=== PATIENT | female | born 1985 | race Hispanic/Latino ===

== ENCOUNTER 2018-08-16 15:25 | Inpatient (IN) | payer MEDICAID ==
[2018-08-16] MEDS ORDERED: BRETHINE IVP PRN (16:26)
[2018-08-16] MEDS ORDERED: BRETHINE SUB-Q PRN (16:26)
[2018-08-16] MEDS ORDERED: MINERAL OIL PO PRN (16:26)
[2018-08-16] MEDS ORDERED: STADOL IV PRN (16:26)
[2018-08-16] MEDS ORDERED: PITOCin/NS 20 UNIT/1000ML DRIP 20 UNITS/1,000 ML BAG IV SCH (17:00)
[2018-08-16] MEDS ORDERED: PITOCin/NS 30 UNIT/500ML 30 UNITS/500 ML BAG IV SCH (17:00)
--- NOTE | 2018-08-16 17:02 | History and Physical Report ---
History of Present Illness Date of examination: 08/16/18 Date of admission: 08/16/18 15:25 Chief complaint: sent from office for admission, advanced dilatation History of present illness: Menstrual History Regularity: regular Menses every: 28 days Duration: 7 LMP: 10/2017 LMP reliability: month known LMP character: normal test type: urine test Date: 05/13/2018 BC at conception: none Planned ? 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 of genital herpes: no Partner hx. of genital herpes: no Rash, Viral, or Febrile illness since last LMP? no Varicella/Chicken Pox Status: Previous Disease Genetic History Congenital Heart Defect: Mom: no Dad: no Christina Disease: Mom: no Dad: no Thalassemia Mom: no Dad: no Neural Tube Defect Mom: no Dad: no Down's Syndrome Mom: no Dad: no Manish-Sachs Mom: no Dad: no Sickle Cell Disease/Trait Mom: no Dad: no Hemophilia Mom: no Dad: no Muscular Dystrophy Mom: no Dad: no Cystic Fibrosis Mom: no Dad: no Hussein Chorea Mom: no Dad: no Mental Retardation Mom: no Dad: no Fragile X Mom: no Dad: no Other Genetic/Chromosomal Disorder Mom: no Dad: no Child w/other defect Mom: no Dad: no Enviromental Exposures Xray Exposure: no Medication, drug, or alcohol use since LMP: no Chemical/Other Exposure: no Exposure to Cat Liter: no Hx of Parvovirus (Fifth Disease): no Occupational Exposure to Children: none Active Medications (reviewed today): None Current Allergies (reviewed today): No known allergies Past History Past Medical History: other (see HPI) Past Surgical History: other (see HPI) 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) Family/Genetic History: other (see HPI) Social history: other (see HPI) - Obstetrical History : 3 Medications and Allergies Allergies Allergy/AdvReac Type Severity Reaction Status Date / Time No Known Allergies Allergy Unverified 08/16/18 16:25 Active Meds: Active Medications Butorphanol Tartrate (Stadol) 2 mg IV Q2H PRN PRN Reason: Pain , Severe (7-10) Ephedrine Sulfate (Ephedrine Sulfate) 10 mg IV Q2M PRN PRN Reason: Hypotension Lactated Ringer's (Lactated Ringers) 1,000 mls @ 125 mls/hr IV DIRECT VEENA Oxytocin/Sodium Chloride (Pitocin/Ns 20 Unit/1000ml Drip) 20 units in 1,000 mls @ 125 mls/hr IV DIRECT VEENA Oxytocin/Sodium Chloride (Pitocin/Ns 30 Unit/500ml) 30 units in 500 mls @ 1 mls/hr IV TITR VEENA; Protocol Oxytocin/Sodium Chloride (Pitocin/Ns 30 Unit/500ml) 30 units in 500 mls @ 2 mls/hr IV TITR VEENA; Protocol Mineral Oil (Mineral Oil) 30 ml PO QHS PRN PRN Reason: Constipation Terbutaline Sulfate (Brethine) 0.25 mg SUB-Q ONCE PRN PRN Reason: Hyperstimulation/Hypertonicity Terbutaline Sulfate (Brethine) 0.25 mg IVP ONCE PRN PRN Reason: Hyperstimulation/Hypertonicity Review of Systems All systems: negative (irregular contractions, "not painful") - Vital Signs Vital signs: Vital Signs Pulse BP 82 141/88 08/16/18 15:47 08/16/18 15:47 Temp Pulse Resp BP Pulse Ox 78 133/89 08/16/18 16:46 08/16/18 16:46 - Physical Exam Breasts: Positive: normal Cardiovascular: Regular rate, Normal S1, Normal S2 Lungs: Positive: Clear to auscultation Abdomen: Positive: normal appearance, soft, normal bowel sounds. Negative: distention, tenderness Genitourinary (Female): Positive: normal external genitalia Vulva: both: normal Vagina: Positive: normal moisture. Negative: discharge Cervix: Negative: lesion, discharge Uterus: Positive: normal size, normal contour Adnexa: both: normal Anus/Rectum: Positive: normal perianal skin, heme negative. Negative: rectal mass, hemorrhoids Extremities: Positive: normal Deep Tendon Reflex Grade: Normal +2 - Obstetrical FHR: auscultation normal, category 1 Uterine Contraction Monitor Mode: External Cervical Dilatation: 6.5 Cervical Effacement Percentage: 80 station: -2 Uterine Contraction Frequency (min): 6-8 Uterine Contraction Duration: 70-100 Uterine Contraction Pattern: Irregular Uterine Tone Measurement Phase: Contraction Uterine Contraction Intensity: Mild Results Result Diagrams: 08/16/18 17:37 All other labs normal. Assessment and Plan 32 y.o. IUP at 40w1d presents to labor and delivery for admission, sent from office for advanced dilatation. Routine admission orders placed. Patient reports feeling irregular contractions and "they're not painful". SVE per my exam currently 6.5/80/-2, posterior, soft. DWP suspected macrosomia and r/f shoulder dystocia, 4th degree laceration; importance of progressing per normal labor curve; all risks, benefits, and alternate routes of delivery discussed. Patient verbalizes understanding and elects to continue with labor at this time. Reviewed history with patient regarding prior deliveries and patient reports largest was 9#7 at , patient denies shoulder dystocia with this despite this being in her medical record. Plan for pitocin per protocol. Will reassess for cervical change after initiation of pitocin and attempt AROM and placement of internal monitors once station descends and cervix is in a more anterior position. Patient desires epidural for pain management, declines placement of epidural at this time. [facility] plan of care. Patient agrees to proceed.
[2018-08-16] MEDS: PITOCin/NS 30 UNIT/500ML 30 UNITS/500 ML BAG IV SCH ×2 (17:22→18:44)
[2018-08-16] MEDS: LACTATED RINGERS 1,000 ML IV SCH ×2 (17:23→18:42)
[2018-08-16 18:31] LABS: Hematocrit 31.1 % (30.3-42.9); Hemoglobin 10.7 gm/dl (10.1-14.3); Mean Corpuscular HGB Conc 34 % (30-34); Mean Corpuscular Volume 91 fl (79-97); Platelet Count 278 K/mm3 (140-440); Red Blood Count 3.42 M/mm3 (3.65-5.03); Red Cell Distribution Width 15.5 % (13.2-15.2)
[2018-08-16] MEDS ORDERED: NARCAN 2 MG/2 ML IV PRN (18:41)
[2018-08-16] MEDS ORDERED: SUBLIMAZE ONE (18:46)
[2018-08-16] MEDS ORDERED: SENSORCAINE/DEXTR 0.75-8.25% INFILTRATI ONE (18:47)
--- NOTE | 2018-08-16 19:02 | Event Note ---
Date: 08/16/18 Pitocin at 8 mu/min. Category 1 tracing. SVE 6.5/80/-1, midposition, pressure of head noted to cervix. Contractions not tracing well with TOCO and RN reports difficulty tracing FHTs with external US. AROM performed, small amount of pink fluid noted initially. After moderate amount clear fluid noted, attempt of IUPC placement. Slight resistance met while attempting to advance catheter, attempt discontinued. FSE placed and continued with external TOCO. Will continue to monitor, continue current POC.
[2018-08-16] MEDS ORDERED: fentaNYL-BUPIV 2 MCG/ML-0.125% 200 MCG/100 ML BAG EPIDURAL SCH (20:00)
--- NOTE | 2018-08-16 22:39 | Procedure Note ---
OB Delivery Note - Delivery Date of Delivery: 08/16/18 Surgeon: CAROLA LINDSAY (Dr. Duffy present at bedside for delivery) Estimated blood loss: 300cc - Vaginal Delivery presentation: vertex (x1) Delivery position: OP Intrapartum events: mult.variable deceleratio Delivery induction: none Delivery augmentation: rupture of membranes, pitocin Delivery monitor: external uterine, internal FHT Route of delivery: Delivery placenta: spontaneous Delivery cord: nuchal cord, 3 umbilical vessels Episiotomy: none Delivery laceration: 1st degree Delivery repair: vicryl Anesthesia: epidural Delivery comments: of viable female infant in direct OP position, delivered through nuchal cord x1. Infant placed to mother's abdomen. Terminal meconium noted. Cord clamped x2 and cut, cord blood collected. Placenta delivered complete and intact. Pitocin to IV. 1st degree laceration repaired in normal fashion. Fundus firm, midline. Hemostasis achieved. Placenta to pathology for terminal meconium. Apgars 8/9. EBL 300. Mother and in LDR, stable condition. - Infant A at 1 minute: 8 (9#4) at 5 minutes: 9 Infant Gender: Female
[2018-08-17] MEDS ORDERED: TYLENOL PO PRN (00:49)
[2018-08-17] MEDS ORDERED: LANSINOH TP PRN (00:49)
[2018-08-17] MEDS ORDERED: TUCKS PAD TP PRN (00:49)
[2018-08-17] MEDS ORDERED: BENADRYL PO PRN (00:49)
[2018-08-17] MEDS ORDERED: DULCOLAX PR PRN (00:49)
[2018-08-17] MEDS ORDERED: PITOCin/NS 20 UNIT/1000ML DRIP 20 UNITS/1,000 ML BAG IV SCH (00:49)
[2018-08-17] MEDS ORDERED: SODIUM CHLORIDE FLUSH SYRINGE 10 ML IV PRN (00:49)
[2018-08-17] MEDS ORDERED: MILK OF MAGNESIA PO PRN (00:49)
[2018-08-17] MEDS ORDERED: PHENERGAN PO PRN (00:49)
[2018-08-17] MEDS ORDERED: ZOFRAN IV PRN (00:49)
[2018-08-17] MEDS: IBUPROFEN PO SCH ×4 (06:13→23:52)
--- NOTE | 2018-08-17 07:31 | Progress Note ---
Assessment and Plan Pt doing well, no complaints. H&H ordered for 1100 today, no s/s anemia. VSSAF. continue postop pathway. Anticipate d/c home tomorrow. - Patient Problems (1) (normal spontaneous vaginal delivery) Current Visit: Yes Status: Acute (2) Rh negative, delivered, current hospitalization Current Visit: Yes Status: Acute Subjective - Subjective Date of service: 08/17/18 Principal diagnosis: day #1 s/p Patient reports: appetite normal, voiding normally, pain well controlled, ambulating normally, no dizzy ambulation, no nauseated [place]: doing well, bottle feeding Objective - Vital Signs Latest vital signs: Vital Signs Temp Pulse Resp BP BP Pulse Ox 08/17/18 02:39 99 F 79 18 122/77 08/17/18 00:46 84 131/73 08/17/18 00:31 75 137/75 08/17/18 00:16 75 131/77 08/17/18 00:01 86 124/79 08/17/18 00:00 98.4 F 18 08/16/18 23:46 69 123/78 08/16/18 23:31 77 120/67 08/16/18 23:16 59 L 117/56 08/16/18 23:01 91 H 128/60 08/16/18 22:46 80 125/68 08/16/18 22:33 81 120/66 08/16/18 22:17 86 131/68 08/16/18 22:03 85 131/79 08/16/18 22:01 74 99 08/16/18 21:46 81 127/69 08/16/18 21:43 81 99 08/16/18 21:38 89 99 08/16/18 21:33 103 H 121/76 100 08/16/18 21:28 92 H 100 08/16/18 21:23 78 98 08/16/18 21:18 74 100 08/16/18 21:16 77 111/72 08/16/18 21:13 71 99 08/16/18 21:08 79 100 08/16/18 21:03 77 100 08/16/18 21:01 82 139/80 08/16/18 20:58 78 100 08/16/18 20:53 75 98 08/16/18 20:48 81 99 08/16/18 20:47 80 118/74 08/16/18 20:43 84 100 08/16/18 20:38 85 98 08/16/18 20:33 72 100 08/16/18 20:31 82 135/75 08/16/18 20:28 81 100 08/16/18 20:23 78 100 08/16/18 20:18 83 100 08/16/18 20:16 83 127/67 08/16/18 20:13 77 100 08/16/18 20:08 77 100 08/16/18 20:03 69 100 08/16/18 20:02 88 125/77 08/16/18 19:58 74 99 08/16/18 19:53 67 98 08/16/18 19:48 73 99 08/16/18 19:47 71 115/70 08/16/18 19:43 72 99 08/16/18 19:38 73 98 08/16/18 19:33 70 97 08/16/18 19:31 74 122/71 08/16/18 19:29 74 118/57 08/16/18 19:28 68 98 08/16/18 19:27 80 119/77 08/16/18 19:25 85 117/72 08/16/18 19:23 80 109/63 99 08/16/18 19:21 77 115/67 08/16/18 19:19 76 116/61 08/16/18 19:18 71 98 08/16/18 19:17 71 118/62 08/16/18 19:15 78 112/56 08/16/18 19:13 79 119/60 99 08/16/18 19:12 98.4 F 75 18 115/67 99 08/16/18 19:11 78 119/73 08/16/18 19:09 68 111/69 08/16/18 19:08 73 97 08/16/18 19:07 71 112/67 08/16/18 19:05 74 109/62 08/16/18 19:03 73 99/57 99 08/16/18 19:01 72 120/65 08/16/18 18:59 78 114/70 08/16/18 18:58 75 99 08/16/18 18:53 82 98 08/16/18 18:50 99 H 125/76 08/16/18 18:48 81 99 03/04/19 18:43 94 H 99 08/16/18 18:38 81 99 08/16/18 18:19 76 121/79 08/16/18 17:58 82 123/75 08/16/18 17:30 99.0 F 16 08/16/18 17:19 80 135/77 08/16/18 16:46 78 133/89 08/16/18 15:47 82 141/88 Intake and Output 08/16/18 08/16/18 08/17/18 15:59 23:59 07:59 Intake Total 1011.433 200 Output Total 550 Balance 1011.433 -350 Intake: IV 1011.433 Lactated Ringers 1,000 ml 1000 @ 125 mls/hr IV DIRECT VEENA Rx#:[id number] PITOCin/NS 30 UNIT/500ML 11.433 30 units In 500 ml @ 2 mls/hr IV TITR VEENA Rx#: [id number] Oral 200 Output: Urine 550 Void 550 Other: Total, Intake Amount 200 Total, Output Amount 300 # Voids Void 1 Weight 113.398 kg Estimated Blood Loss 300 - Exam Breasts: Present: normal Cardiovascular: Present: Regular rate Lungs: Present: Clear to auscultation, Normal air movement Abdomen: Present: normal appearance, soft Vulva: both: laceration/episiotomy Uterus: Present: normal, firm, fundal height at umbilicus Extremities: Present: normal - Labs Labs: Abnormal lab results 08/16/18 Range/Units 17:37 RBC 3.42 L (3.65-5.03) M/mm3 RDW 15.5 H (13.2-15.2) %
[2018-08-17 11:34] LABS: Hematocrit 28.4 % (30.3-42.9); Hemoglobin 9.7 gm/dl (10.1-14.3)
[2018-08-17] MEDS ORDERED: AFLURIA QUAD 2018-2019 SYRINGE IM ONE (12:00)
[2018-08-17] MEDS: PRENATAL VITAMIN PO SCH (12:09)
[2018-08-18] MEDS ORDERED: BOOSTRIX IM ONE (06:00)
--- NOTE | 2018-08-18 07:54 | Discharge Summary ---
Providers - Providers Date of Admission: 08/16/18 15:25 Date of discharge: 08/18/18 Attending physician: ESPERANZA RIVERA 08/17/18 00:49 Consult to Demo Coordinator [CONS] Routine Reason For Exam: assistance with , SNS Primary care physician: ESPERANZA RIVERA Hospitalization Reason for admission: Labor Condition: Good Pertinent studies: Post delivery H&H 9.7/28.4. Patient is asymptomatic of anemia. Procedures: Hospital course: uncomplicated and course Disposition: DC- TO HOME OR SELFCARE Core Measure Documentation - Palliative Care Palliative Care/ Comfort Measures: Not Applicable - Core Measures Any of the following diagnoses?: none Exam - Constitutional Vitals: Temp Pulse Resp BP Pulse Ox 97.5 F L 78 18 116/79 97 08/18/18 00:00 08/18/18 00:00 08/18/18 00:00 08/18/18 00:00 08/17/18 16:54 General appearance: Present: no acute distress, well-nourished - EENT Eyes: Present: PERRL ENT: hearing intact, clear oral mucosa - Neck Neck: Present: supple, normal ROM - Respiratory Respiratory effort: normal Respiratory: bilateral: CTA - Cardiovascular Rhythm: regular Heart Sounds: Present: S1 & S2. Absent: rub, click - Extremities Extremities: pulses symmetrical, No edema Peripheral Pulses: within normal limits - Abdominal General gastrointestinal: Present: soft, non-tender, non-distended, normal bowel sounds Female genitourinary: Present: normal - Integumentary Integumentary: Present: clear, warm, dry - Musculoskeletal Musculoskeletal: gait normal, strength equal bilaterally - Psychiatric Psychiatric: appropriate mood/affect, intact judgment & insight - Neurologic Neurologic: CNII-XII intact, moves all extremities - Additional findings Additional findings: Fundus firm, ML, U/2. Bleeding is scant. Patient reports pain is minimal, well controlled with PO Motrin. Patient is bottle feeding infant, no breast complaints. VSSAF. Plan Activity: no restrictions Diet: regular Wound: keep clean and dry Follow up with: ESPERANZA RIVERA MD [Primary Care Provider] - 09/15/18 (Congratulations! Please call [phone] to schedule your appointment in 4 week. Please call with any questions or concerns. ) Prescriptions: Docusate Sodium [Colace] 100 mg PO BID PRN #60 capsule PRN Reason: Constipation Ferrous Sulfate [Feosol 325 MG tab] 325 mg PO BID #60 tablet
[2018-08-18 08:50] VITALS: BP 125/84
[2018-08-18] MEDS: PRENATAL VITAMIN PO SCH (09:54)
[2018-08-18] MEDS: IBUPROFEN PO SCH (11:59)
[2018-08-18] MEDS ORDERED: AFLURIA QUAD 2018-2019 SYRINGE IM ONE (12:00)
== END 2018-08-18 14:07 | disposition home or self-care (01) | DRG 775 ==
LOC: LD 15:25 → OB 08-17 00:50
PROVIDERS: ADMIT Obstetrics & Gynecology; ATTEND Obstetrics & Gynecology
PROC: 10E0XZZ Delivery of Products of Conception, External Approach (ICD-10-PCS; principal; 2018-08-16)
PROC: 0HQ9XZZ Repair Perineum Skin, External Approach (ICD-10-PCS; 2018-08-16)
PROC: 10H073Z Insertion of Monitoring Electrode into Products of Conception, Via Natural or Artificial Opening (ICD-10-PCS; 2018-08-16)
PROC: 4A1H74Z Monitoring of Products of Conception, Cardiac Electrical Activity, Via Natural or Artificial Opening (ICD-10-PCS; 2018-08-16)
PROC: 10907ZC Drainage of Amniotic Fluid, Therapeutic from Products of Conception, Via Natural or Artificial Opening (ICD-10-PCS; 2018-08-16)
PROC: 3E0234Z Introduction of Serum, Toxoid and Vaccine into Muscle, Percutaneous Approach (ICD-10-PCS; 2018-08-18)
PROC: 3E0R3BZ Introduction of Anesthetic Agent into Spinal Canal, Percutaneous Approach (ICD-10-PCS; 2018-08-18)
PROC: 00HU33Z Insertion of Infusion Device into Spinal Canal, Percutaneous Approach (ICD-10-PCS; 2018-08-18)
DX: O76 Abnormality in fetal heart rate and rhythm complicating labor and delivery (principal); O77.0 Labor and delivery complicated by meconium in amniotic fluid; O69.81X0 Labor and delivery complicated by cord around neck, without compression, not applicable or unspecified; Z3A.40 40 weeks gestation of pregnancy; Z37.0 Single live birth; Z23 Encounter for immunization; Z90.49 Acquired absence of other specified parts of digestive tract; Z82.49 Family history of ischemic heart disease and other diseases of the circulatory system; Z83.3 Family history of diabetes mellitus; O70.0 First degree perineal laceration during delivery; O26.893 Other specified pregnancy related conditions, third trimester; Z67.91 Unspecified blood type, Rh negative
CPT/HCPCS: 36415; 85014; 85018; 85027; 85461; 86592; 86850; 86900; 86901; 88307; 90686; G0378; J2590; J3010; J7120